=== PATIENT | female | born 1985 | race Caucasian/White ===

== ENCOUNTER 2018-06-29 18:45 | Emergency (ER) | payer SELFPAY ==
[2018-06-29 18:56] VITALS: BP 130/99
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
== END 2018-06-29 20:38 | disposition home or self-care (01) ==
LOC: JD.ED 18:45
DX: T33.832A Superficial frostbite of left toe(s), initial encounter (principal); T33.831A Superficial frostbite of right toe(s), initial encounter; J20.9 Acute bronchitis, unspecified; J06.9 Acute upper respiratory infection, unspecified; M06.9 Rheumatoid arthritis, unspecified; F17.210 Nicotine dependence, cigarettes, uncomplicated; Z88.6 Allergy status to analgesic agent; Z88.5 Allergy status to narcotic agent; Z98.890 Other specified postprocedural states; X31.XXXA Exposure to excessive natural cold, initial encounter
CPT/HCPCS: 99283

== ENCOUNTER 2019-03-26 10:35 | Emergency (ER) | payer SELFPAY ==
[2019-03-26] MEDS ORDERED: FLU Vacc QS2019-20(6MOS+)/PF 60 MCG/0.5 ML SYRINGE IM ONE (11:15)
[2019-03-26] MEDS ORDERED: LORazepam 0.5 MG Tab PO ONE (11:23)
[2019-03-26] MEDS ORDERED: Dexamethasone 10 MG/ML SDV IM ONE (11:25)
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
[2019-03-26 14:24] VITALS: BP 128/90; PULSE 108
--- NOTE | 2019-03-27 07:38 | CR ---
Chest: Two views of the chest were obtained. Comparison: No prior chest x-ray. Heart size and mediastinum are normal. Lungs are clear. Minimal scoliosis is noted within the spine. Impression: 1. Minimal scoliosis. Nothing acute is appreciated on two-view chest x-ray. Diagnostic code #1
== END 2019-03-26 13:40 | disposition home or self-care (01) ==
LOC: SUPCPDRO 10:35 → JD.ED 10:35
DX: T43.621A Poisoning by amphetamines, accidental (unintentional), initial encounter (principal); F41.9 Anxiety disorder, unspecified; M06.9 Rheumatoid arthritis, unspecified; F17.210 Nicotine dependence, cigarettes, uncomplicated; Z88.6 Allergy status to analgesic agent; Z88.5 Allergy status to narcotic agent; Z23 Encounter for immunization; Z79.899 Other long term (current) drug therapy; Y92.89 Other specified places as the place of occurrence of the external cause
CPT/HCPCS: 36415; 71046; 80053; 80306; 84703; 85025; 90471; 90686; 96372; 99285; A9270; J1100; G0008